=== PATIENT | male | born 1945 | race Caucasian/White ===

== ENCOUNTER 2018-10-12 11:33 | Outpatient (CLI) | payer MEDICARE, BC ==
[~2018-10-12] VITALS: Ht 177.8 cm; Wt 75.9 kg
--- NOTE | ~2018-10-12 | HEMODYNAMI ---
PATIENT:MARNI WATERS MEDICAL RECORD: [id number] : 47 LOCATION:DRkCAT ADMISSION DATE: 10/12/18 Generatedon:10/12/201814:06 Patient name: MARNI WATERS Patient #: [id number] SSN: : 1945 Date of study: 10/12/2018 Page: Of Hemodynamic Procedure Report Patient Data Patient Demographics Procedure consent was obtained First Name: MARNI Gender: Male Last Name: JT : 1945 Middle Initial: L Age: 73 year(s) Patient #: [id number] Race: Unknown Additional ID: [id number] Contact details [address]: [address] [place] [address] State: [place] City: [place] Zip code: [address] Past Medical History Allergies Allergen Reaction Date Comments Reported Other allergy 10/12/2018 Sulfa Admission Admission Data Admission Date: 10/12/2018 Admission Time: 11:33 Procedure Procedure Types Cath Procedure Diagnostic Procedure LHC LHC w/Coronaries Sedation Charges Moderate Sedation up to 15 minutes Peripheral Cath Diagnostic Procedure Abd/Extremity Aortagram Procedure Description Procedure Date Procedure Date: 10/12/2018 Procedure Start Time: 13:18 Procedure End Time: 14:04 Procedure Staff Name Function Janusz Koroma MD Performing Physician Lela Ma RT Monitor Rayo Sesay RT Monitor Karey Srivastava RT Scrub Martin John RN Nurse Procedure Data Cath Procedure Fluoroscopy Diagnostic fluoroscopy Total fluoroscopy Time: time: 15.3 min 15.3 min Diagnostic fluoroscopy Total fluoroscopy dose: 975 dose: 975 mGy mGy Contrast Material Contrast Material Type Amount (ml) Isovue 300 221 Entry Location Entry Primary Successful Side Size Upsize Upsize Entry Closure Coreas ccessful Closure Location (Fr) 1 (Fr) 2 (Fr) Remarks Device Remarks Radial Right 6 Fr Mechanical artery Short Compression Estimated blood loss: 5 ml Diagnostic catheters Device Type Used For End Catheter Placement DIAGNOSTIC 5FR Infinity Multi-vessel RBL-TG ([id number]) Angiography DIAGNOSTIC Pigtail 5Fr Multi-vessel catheter ([id number]) Angiography DIAGNOSTIC Aqua Multi-vessel Berenstein 125cm 5Fr Angiography catheter ([id number]) DIAGNOSTIC JB3 5Fr Multi-vessel Catheter ([id number]) Angiography DIAGNOSTIC JL 3.5 5Fr Multi-vessel catheter ([id number]) Angiography DIAGNOSTIC JL 5 5Fr Multi-vessel catheter ([id number]) Angiography Procedure Complications No complications Procedure Medications Medication Administration Route Dosage 0.9% NaCl I.V. 100 ml/hr Oxygen etCO2 Nasal cannula 2 l/min Heparin Flush Bag added to field 2 bags (1000units/500ml NS) Lidocaine 2% added to field 20 Radial Cocktail added to field 1 syringe (Verapomil 2mg/Nitro 400mcg/Heparin 1500units) Versed I.V. 2 mg Fentanyl I.V. 100 mcg Versed I.V. 1 mg Radial Cocktail I.A. 1 syringe (Verapomil 2mg/Nitro 400mcg/Heparin 1500units) Versed I.V. 1 mg Hemodynamics Rest Heart Rate: 75 (bpm) Pressure Samples Time Site Value (mmHg) Purpose Heart Use Rate(bpm) 13:23 LV 103/4,5 Snapshot 114 Snapshots Pre Cath Intra NCS Post Cath Vital Signs Time Heart Resp SPO2 etCO2 NIBP (mmHg) Rhythm Pain Sedation Rate (ipm) (%) (mmHg) Status Level (bpm) 12:56:45 72 14 100 30.6 119/84(112) NSR 0 (11) 10(A) , No pain 13:00:48 72 12 95 0 140/79(123) NSR 0 (11) 10(A) , No pain 13:04:58 69 12 99 29.1 143/82(110) NSR 0 (11) 10(A) , No pain 13:09:10 74 19 92 0 140/81(120) NSR 0 (11) 10(A) , No pain 13:13:20 75 19 92 0 143/80(117) NSR 0 (11) 10(A) , No pain 13:17:30 74 14 93 0 127/81(115) NSR 0 (11) 10(A) , No pain 13:22:04 95 11 95 29 109/71(90) NSR 0 (11) 10(A) , No pain 13:27:03 97 12 96 0 110/73(92) NSR 0 (11) 10(A) , No pain 13:31:07 83 11 95 0 125/70(90) NSR 0 (11) 10(A) , No pain 13:35:13 82 11 95 0 128/76(99) NSR 0 (11) 10(A) , No pain 13:39:23 82 12 93 0 119/70(101) NSR 0 (11) 10(A) , No pain 13:43:28 81 12 93 0 125/72(96) NSR 0 (11) 10(A) , No pain 13:47:36 80 14 95 0 121/73(92) NSR 0 (11) 10(A) , No pain 13:51:42 83 13 92 0 120/76(101) NSR 0 (11) 10(A) , No pain 13:55:48 86 13 94 0 128/72(97) NSR 0 (11) 10(A) , No pain 14:00:00 83 16 92 0 113/65(81) NSR 0 (11) 10(A) , No pain 14:04:03 80 15 94 0 117/68(90) NSR 0 (11) 10(A) , No pain Medications Time Medication Route Dose Verified Delivered Reason Notes Effectiveness by by 12:55:58 0.9% NaCl I.V. 100 Martin Martin Per ml/hr Alvaro John physician RN RN 12:56:07 Oxygen etCO2 2 l/min Martin Martin Per Nasal Alvaro John physician cannula RN RN 12:56:18 Heparin Flush added 2 bags Martin Martin used for Bag to Lorigan Lorigan procedure (1000units/500ml [facility] RN RN NS) 12:56:29 Lidocaine 2% added 20ml Martin Martin for local to vial Lorigan Lorigan anesthetic field RN RN 12:56:42 Radial Cocktail added 1 Martin Martin used for (Verapomil to syringe Lorigan Lorigan procedure 2mg/Nitro RN RN 400mcg/Heparin 1500units) 13:10:42 Versed I.V. 2 mg Martin Martin for sedation Alvaro John RN RN 13:10:51 Fentanyl I.V. 100 mcg Martin Martin for sedation Alvaro John RN RN 13:19:34 Versed I.V. 1 mg Martin Martin for sedation Alvaro John RN, RN 13:20:10 Radial Cocktail I.A. 1 Martin Boudreaux for (Verapomil syringe Lorigan Ga vasodilation 2mg/Nitro SG HOLDEN 400mcg/Heparin 1500units) 13:52:20 Versed I.V. 1 mg Martin Martin for sedation Alvaro John RN, RN Procedure Log Time Note 12:39:44 Martin John RN sent for patient. Start room use. 12:39:45 Time tracking: Regular hours (M-F 7:00 - 5:00) 12:39:50 Plan of Care:Hemodynamics will remain stable., Cardiac rhythm will remain stable., Comfort level will be maintained., Respiratory function will remain adequate., Patient/ family verbilizes understanding of procedure., Procedure tolerated without complication., Recovers from procedure without complications.. 12:45:38 Patient received from Pre/Post Procedure Room to [facility] 2 Alert and oriented. Tansferred to table in Supine position. 12:45:40 Warm blankets applied, and eveline hugger turned on for patient comfort. 12:45:40 Correct patient and procedure confirmed by team. 12:45:41 Signed procedure consent form obtained from patient. 12:45:43 ECG and BP/O2 sat monitors applied to patient. 12:55:42 Vital chart was started 12:55:47 Baseline sample Acquired. 12:55:51 Rhythm: sinus rhythm 12:55:53 Full Disclosure recording started 12:55:58 0.9% NaCl 100 ml/hr I.V. was administered by Martin John RN; Per physician; 12:56:07 Oxygen 2 l/min etCO2 Nasal cannula was administered by Martin John RN; Per physician; 12:56:18 Heparin Flush Bag (1000units/500ml NS) 2 bags added to field was administered by Martin John RN; used for procedure; 12:56:18 H&P Date Dictated: 09/19/2018 Within 30 days and on chart., H&P Addendum completed by physician on day of procedure. (MUST COMPLETE FOR ALL OUTPATIENTS). 12:56:19 Pre-procedure instructions explained to patient. 12:56:21 Family in waiting room. 12:56:23 Patient NPO since Midnight. 12:56:29 Lidocaine 2% 20ml vial added to field was administered by Martin John RN; for local anesthetic; 12:56:35 Patient allergic to Other allergySulfa 12:56:38 Is the patient allergic to Iodine/contrast media? No. 12:56:39 Was the patient premedicated? Yes 12:56:42 Radial Cocktail (Verapomil 2mg/Nitro 400mcg/Heparin 1500units) 1 syringe added to field was administered by Martin John RN; used for procedure; 12:56:47 Is patient on blood thinner?Yes 12:56:50 ACC The patient was administered the following blood thiners within the last 24 hours: ACCPlavix 12:56:52 Patient diabetic? No. 12:56:58 Snore? Yes 12:57:00 Sleep apnea? No 12:57:07 Dentures? No ? 12:57:15 Patient pain scale 0/10 ?. 12:57:57 Right Radial & Right Groin area was prepped with chlora-prep and draped in sterile fashion 12:57:58 Alarms reviewed by R. N. 12:57:59 Sharps counted by scrub and verified by R.N. 13:06:57 Physician arrived 13:06:57 --------ALL STOP TIME OUT------ 13:06:58 Final Timeout: patient, procedure, and site verified with staff and physician. All members of the team are in agreement. 13:06:59 Right Radial & Right Groin site verified by team. 13:07:04 Fire Safety Assessment: A--An alcohol-based skin anteseptic being used preoperatively., C--Open oxygen or nitrous oxide is being used., D--An ESU, laser, or fiber-optic light is being used. 13:07:07 Physical assessment completed. ASA score P 2 - A patient with mild systemic disease as per Janusz Koroma MD. 13:07:10 Sedation plan: IV Moderate Sedation Medication:Versed, Fentanyl 13:10:42 Versed 2 mg I.V. was administered by Martin John RN; for sedation; 13:10:51 Fentanyl 100 mcg I.V. was administered by Martin John RN; for sedation; 13:18:16 Procedure started. 13:18:20 Use device set Radial Dx or PCI 13:18:22 ACIST Syringe (10335) opened to sterile field. 13:18:22 Medline Cath Pack ([id number]) opened to sterile field. 13:18:23 Bag Decanter (2001S) opened to sterile field. 13:18:27 ACIST Hand Control (93813) opened to sterile field. 13:18:28 ACIST Manifold (06675) opened to sterile field. 13:18:28 Tegaderm 4 x 4 (1626W) opened to sterile field. 13:18:29 MBrace Wrist Support ([id number]) opened to sterile field. 13:18:31 SHEATH 6FR Slender (11-1060) opened to sterile field. 13:18:40 EMERALD Guide Wire (280-851) opened to sterile field. 13:18:49 Local anesthetic to right radial artery with Lidocaine 2% by Janusz Koroma MD.INITIAL ACCESS ONLY 13:19:34 Versed 1 mg I.V. was administered by Martin John RN; for sedation; 13:19:39 A 6 Fr Short sheath was inserted into the Right Radial artery 13:20:10 Radial Cocktail (Verapomil 2mg/Nitro 400mcg/Heparin 1500units) 1 syringe I.A. was administered by Janusz Koroma MD; for vasodilation; 13:22:07 A DIAGNOSTIC 5FR Infinity RBL-TG ([id number]) was advanced over the wire and used for Multi-vessel Angiography. 13:23:20 LV hemodynamics recorded. 13:23:21 LV gram done using CUEVAS 13:23:23 Injector settings: Ml/sec: 5, Volume: 15, 13:24:28 EF : 50 % 13:25:28 LCA angiography performed. 13:25:32 Injector settings: Ml/sec: 3, Volume: 6, 13:26:54 RCA angiography performed. 13:26:57 Injector settings: Ml/sec: 3, Volume: 6, 13:28:16 Catheter removed. 13:29:31 A DIAGNOSTIC Pigtail 5Fr catheter (074760G) was advanced over the wire and used for Multi-vessel Angiography. 13:31:27 Catheter removed. unable to cannulate vessel. 13:31:39 A DIAGNOSTIC Samba TVa Berenstein 125cm 5Fr catheter (RON1331) was advanced over the wire and used for Multi-vessel Angiography. 13:34:04 GLIDE WIRE ANGLE 260cm (FV1027) opened to sterile field. 13:34:39 glide wire advanced. 13:36:32 Abdominal Aortagram was performed. 13:38:13 Catheter removed. 13:41:59 GUIDE 5FR JR 4.0 catheter ([id number]) opened to sterile field. 13:42:09 5 Fr jr 4 guide catheter was inserted over the wire 13:44:00 Catheter removed. unable to cannulate vessel. 13:45:38 A DIAGNOSTIC JB3 5Fr Catheter (048530C0) was advanced over the wire and used for Multi-vessel Angiography. 13:47:58 Catheter removed. 13:48:44 A DIAGNOSTIC JL 3.5 5Fr catheter (544191Q) was advanced over the wire and used for Multi-vessel Angiography. 13:50:56 Catheter removed. 13:51:10 A DIAGNOSTIC JL 5 5Fr catheter (724192P) was advanced over the wire and used for Multi-vessel Angiography. 13:52:20 Versed 1 mg I.V. was administered by Martin John RN; for sedation; 13:56:27 Bilateral carotid angiography performed. 13:56:29 Bilateral subclavian angiography performed 13:57:35 Catheter removed. 13:57:55 5 Fr jr 4 guide catheter was inserted over the wire 13:58:31 Right carotid angiography performed. 13:58:43 Right subclavian angiography performed 13:59:06 Catheter removed. 14:00:12 Sheath removed intact; hemostasis achieved with Mechanical Compression to the Right Radial artery. 14:00:21 Procedure ended.(Physican Out) 14:00:38 Fluoroscopy time 15.30 minutes. 14:00:41 Flurop Dose total: 975 14:00:41 Fluoroscopy dose: 975 mGy 14:02:01 Contrast amount:Isovue 300 221ml. 14:02:02 Sharps counted by scrub and verified by R.N. 14:02:08 TR band inflated with 10cc of air. 14:02:09 Insertion/operative site no bleeding no hematoma. 14:02:17 Post right radial artery:stable 14:02:19 Post Procedure Pulses reassessed and unchanged 14:02:21 Post procedure rhythm: unchanged. 14:02:23 Estimated blood loss: 5 ml 14:02:26 Post procedure instruction explained to patient.Patient verbalizes understanding. 14:02:27 Patient needs reinforcement of post procedure teaching. 14:03:31 Procedure type changed to Cath procedure, Diagnostic procedure, LHC, LHC w/Coronaries, Sedation Charges, Moderate Sedation up to 15 minutes, Peripheral Cath Diagnostic Procedure, Abd/Extremity, Aortagram 14:03:32 Procedure and supply charges have been captured, reviewed, submitted and are correct. 14:03:36 Procedure Complication : No complications 14:03:38 Vital chart was stopped 14:03:49 ZEPHYR REGULAR TR BAND NO COST(872054) opened to sterile field. 14:03:52 See physician's report for complete and final results. 14:03:59 Report given to Pre/Post Procedure Room. 14:04:02 Patient transfered to Pre/Post Procedure Room with Stretcher. 14:04:05 Procedure ended. 14:04:05 Full Disclosure recording stopped 14:04:11 End room use (Document Last) Device Usage Item Name Manufacture Quantity Catalog Hospital Part Current Minima l Lot# / Number Charge Number Stock Stock Serial# Code ACIST Acist 1 55864 007791 960249 [id number] 20 Syringe Medical (65685) Systems Inc Medline Cath Medline 1 [id number] 178600 95642 911923 5 Pack ([id number]) Bag Decanter Microtek 1 2001S 001315 05862 720044 5 (2001S) Medical Inc. ACIST Hand Acist 1 31978 703027 540997 842799 5 Control Medical (12205) Systems Inc ACIST Acist 1 79383 065735 574425 079161 5 Manifold Medical (07013) Systems Inc Tegaderm 4 x 3M 1 1626W 146674 030587 644133 5 4 (1626W) MBrace Wrist Advanced 1 140-0250-00 564165 49412 825457 5 Support Vascular (247070976) Dynamics SHEATH 6FR Terumo 1 [id number] 642107 150532 869950 5 Slender (80-1060) EMERALD Cardinal 1 502-455 209501 637419 5 Guide Wire Health (502-455) DIAGNOSTIC Cardinal 1 703544W0 530085 291964 5 5FR Syllabuster Health RBL-TG (089851K2) DIAGNOSTIC Cardinal 1 [id number] 501436 810160 922802 5 Pigtail 5Fr Health catheter (740264O) DIAGNOSTIC Cardinal 1 [id number] 794632 399394 393261 5 Aqua Health Berenstein 125cm 5Fr catheter (KSA9218) GLIDE WIRE Terumo 1 HZ3399 109719 438082 912685 5 ANGLE 260cm (KQ5057) GUIDE 5FR JR Medtronic 1 [id number] 120235 170548 669423 1 4.0 catheter (XR3YY42) DIAGNOSTIC Cardinal 1 638527Q7 869484 588839 386255 5 JB3 5Fr Health Catheter (420501R9) DIAGNOSTIC Cardinal 1 708189E 390642 305734 940615 5 JL 3.5 5Fr Health catheter (537193K) DIAGNOSTIC Cardinal 1 196585Z 972406 316087 181631 5 JL 5 5Fr Health catheter (931222O) ZEPHYR Cardinal 1 994052 033124 851042 5 REGULAR TR Health BAND NO COST(632406) Signature Audit [place] Stage Time Signature Unsigned Intra-Procedure 10/12/2018 Lela Ma 2:06:20 PM RT(R) Signatures Monitor : Lela Ma RT Signature : Date : Time : Monitor : Rayo Sesay Signature : RT Date : Time : [facility] [address] [place] [address]
[2018-10-12] MEDS ORDERED: ZOCOR10 MG PO (12:22)
[2018-10-12] MEDS ORDERED: PLAVIX75 MG PO (12:22)
[2018-10-12] MEDS ORDERED: LEVOXYL125 MCG PO (12:22)
[2018-10-12] MEDS ORDERED: LISINOPRIL5 MG PO (12:23)
[2018-10-12] MEDS ORDERED: BUPROPION HCL150 M1 PO (12:23)
[2018-10-12] MEDS ORDERED: NOVOLIN 70/30 110 ML SC (12:24)
[2018-10-12 12:37] VITALS: BP 133/68; Ht 177.8 cm; Wt 75.9 kg
[2018-10-12 12:41] LABS: BASOPHILS 0.3 % (0-2); HEMOGLOBIN 14.8 g/dL (13.5-17.5); IMMATURE GRANULOCYTES 0.2 % (0-5); MCH 29.7 pg (26.0-34.0); MCHC 34.4 g/dL (31.0-37.0); MCV 86.2 fL (80.0-100.0); MONOCYTES 10.2 % (2-11); NEUTROPHILS 62.3 % (40-80); PLATELET COUNT 164 10x3/uL (130-400); RBC 4.99 10x6/uL (4.20-6.10); WBC 6.2 10x3/uL (4.8-10.8)
[2018-10-12 12:48] LABS: ANION GAP 11.7 mmol/L (8-16); CALCIUM 8.4 mg/dL (8.5-10.1); CARBON DIOXIDE 28.4 mmol/L (21.0-32.0); CREATININE - SERUM 1.2 mg/dL (0.6-1.3); POTASSIUM - SERUM 4.1 mmol/L (3.5-5.1)
--- NOTE | 2018-10-12 14:30 | NUR ---
PATIENT AWAKE, EATING TURKEY SANDWICH. VSS ON ROOM AIR. RIGHT ZEPHYR BAND IN PLACE, NO S/S OF BLEEDING OR HEMATOMA.
--- NOTE | 2018-10-12 15:00 | NUR ---
PATIENT RESTING, VSS ON ROOM AIR. RIGHT ZEPHYR BAND IN PLACE, NO S/S OF BLEEDING OR HEMATOMA. NO C/O PAIN, NUMBNESS, OR TINGLING.
--- NOTE | 2018-10-12 15:15 | NUR ---
BEGIN AIR REMOVAL PROTOCOL FOR ZEPHYR BAND, NO S/S OF BLEEDING OR HEMATOMA NOTED.
--- NOTE | 2018-10-12 15:45 | NUR ---
REMAINING AIR REMOVED FROM TR BAND, NO S/S OF BLEEDING OR HEMATOMA NOTED. IV REMOVED. EDUCATION GIVEN TO PATIENT AND FRIEND REGARDING DISCHARGE INSTRUCTIONS, ALL QUESTIONS ANSWERED. VSS ON ROOM AIR.
--- NOTE | 2018-10-12 16:10 | NUR ---
RIGHT DRESSING IS CDI, NO S/S OF BLEEDING OR HEMATOMA NOTED. PATIENT TRANSFERRED VIA WHEELCHAIR TO CAR WITH FRIEND DRIVING, ALL BELONGINGS WITH PATIENT.
--- NOTE | 2018-10-14 12:22 | OP ---
PATIENT NAME: MARNI WATERS MEDICAL RECORD: [id number] :47 LOCATION:D.CAT ADMISSION DATE: SURGEON: MIKAL DAVIS MD DATE OF OPERATION: 10/12/2018 PROCEDURES: Left heart catheterization and selective coronary angiography plus an abdominal aortogram plus 4-vessel arteriography, right radial approach. CATHETERS: Include radial sheath, [place] catheter, pigtail catheter, JR4, JL3.5, and JL5 curve. The procedure was well tolerated. The patient was returned to the sheehan. Sheath was removed. TR band was placed. FINDINGS: AORTOGRAM: This shows no evidence of aortic dissection. There is total occlusion above the bifurcation of the iliacs. Marked dilation of inferior and superior mesenteric arteries, consistent with collaterals to the lower extremity. FOUR-VESSEL ARTERIOGRAPHY: RIGHT: The right common carotid was selectively engaged. Right common carotid shows smooth-walled vessel, free of disease. Right internal carotid is smooth-walled vessel, free of disease. Right external carotid is smooth-walled vessel, free of disease. LEFT: The left common carotid was selectively engaged. This shows smooth-walled vessel, free of disease. Left internal carotid does show about 50% stenosis in its mid portion, appears to be more than 50%. Left external carotid is smooth-walled vessel, free of disease. LEFT VENTRICULOGRAPHY: Normal wall motion. Normal systolic function. CORONARY ANATOMY: LEFT MAIN: Left main is free of disease. LAD: It has diffuse stenosis in its mid portion with about 80% good target distally. CIRCUMFLEX: Circumflex has a proximal stenosis of 90%. There is a 90% stenosed OM distally as well. RIGHT CORONARY ARTERY: It has 2 sequential stenoses of 80%. IMPRESSION: 1. Multivessel coronary artery disease. Preserved LV systolic function. 2. Early atherosclerotic plaquing of the left internal carotid. 3. 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 TRANSINT:[id number] Voice Confirmation ID: [id number] DOCUMENT ID: [id number] OPERATIVE REPORT [id number] MARNI WATERS MIKAL DAVIS MD at 1222 CC: [id number] DICTATION DATE: 10/12/18 1416 SYSTEMS MANAGER: 10/12/18 1813 DEP CLI 10/12/18 [facility] [address] [place] [address]
== END 2018-10-12 16:10 ==
LOC: D.CATH 11:33
PROVIDERS: Internal Medicine Interventional Cardiology
DX: I25.10 Atherosclerotic heart disease of native coronary artery without angina pectoris (principal); I65.22 Occlusion and stenosis of left carotid artery

== ENCOUNTER → 2018-10-14 09:32 | Outpatient (CLI) | payer MEDICARE, BC ==
[2018-10-12 12:37] VITALS: BMI 24.0
[~2018-10-14 09:32] MED LIST: ASPIRIN EC81 M1 PO; BUPROPION HCL150 M1 PO; COLACE100 MG PO; K-DUR20 MEQ PO; LEVOXYL125 MCG PO; LISINOPRIL5 MG PO; NOVOLIN 70/30 110 ML SC; PERCOCET 5-3251 TAB PO; PLAVIX75 MG PO; XOPENEX HFA15 GM INH; ZOCOR10 MG PO
[2018-10-14 10:18] LABS: PLT FUNCT.(P2Y12) PLAVIX 185 PRU (194-418)
== END | disposition home or self-care (01) ==
LOC: D.LAB 08:00 → D.US 08:30 → D.LAB 09:32
PROVIDERS: Internal Medicine Cardiovascular Disease
DX: I65.23 Occlusion and stenosis of bilateral carotid arteries (principal)

== ENCOUNTER 2018-10-18 10:48 | Inpatient (IN) | payer MEDICARE, BC ==
[~2018-10-18] VITALS: Ht 177.8 cm; Wt 77.6 kg
[~2018-10-18 10:48] MED LIST changes: -ASPIRIN EC81 M1 PO; -COLACE100 MG PO; -K-DUR20 MEQ PO; -PERCOCET 5-3251 TAB PO; -XOPENEX HFA15 GM INH
[2018-10-18 11:59] LABS: BASOPHILS 0.4 % (0-2); EOSINOPHILS 3.6 % (0-7); HEMATOCRIT 43.2 % (42.0-54.0); HEMOGLOBIN 15.1 g/dL (13.5-17.5); IMMATURE GRANULOCYTES 0.1 % (0-5); LYMPHOCYTES 19.4 % (15-50); MCH 29.9 pg (26.0-34.0); MCV 85.5 fL (80.0-100.0); MEAN PLATELET VOLUME 9.9 fL (7.4-10.4); MONOCYTES 10.5 % (2-11); PLATELET COUNT 179 10x3/uL (130-400); RBC 5.05 10x6/uL (4.20-6.10); RDW 11.9 % (11.5-14.5); WBC 7.2 10x3/uL (4.8-10.8)
[2018-10-18] MEDS ORDERED: XOPENEX HFA15 GM INH (11:59)
[2018-10-18 12:23] LABS: APPEARANCE CLEAR (CLEAR); BILIRUBIN NEGATIVE (NEGATIVE); COLOR YELLOW (YELLOW); GLUCOSE 1000 mg/dL (NEGATIVE); KETONE NEGATIVE (NEGATIVE); NITRITE NEGATIVE (NEGATIVE); PROTEIN NEGATIVE (NEGATIVE); SPECIFIC GRAVITY 1.015 (1.005-1.020); UROBILINOGEN NORMAL (NORMAL)
[2018-10-18 12:24] LABS: APTT 26.3 SECONDS (22.8-39.4); INR 1.06 (0.85-1.17); PROTIME 13.3 SECONDS (11.6-15.0)
[2018-10-18 12:29] LABS: ALBUMIN 3.8 g/dL (3.4-5.0); ANION GAP 16.9 mmol/L (8-16); BILIRUBIN - TOTAL 0.33 mg/dL (0.2-1.3); CALCIUM 8.4 mg/dL (8.5-10.1); CREATININE - SERUM 1.2 mg/dL (0.6-1.3); PHOSPHOROUS 3.1 mg/dL (2.5-4.9); POTASSIUM - SERUM 3.9 mmol/L (3.5-5.1); PROTEIN - SERUM 7.1 g/dL (6.4-8.2); T4 THYROXIN - FREE 1.03 ng/dL (0.76-1.46); THYROID STIMULATING HORMONE 1.34 uIU/mL (0.36-3.74); URIC ACID 3.8 mg/dL (2.6-7.2)
[2018-10-20] VITALS (29 sets, daily range): BP systolic 111–150; BP diastolic 48–85; BMI 25.1; BMI 25.0
[2018-10-21] VITALS (23 sets, daily range): BP systolic 102–140; BP diastolic 49–74; Ht 177.8 cm; Wt 77.6 kg
[2018-10-21 06:44] LABS: HEMATOCRIT 37.3 % (42.0-54.0); HEMOGLOBIN 12.4 g/dL (13.5-17.5); MCH 29.4 pg (26.0-34.0); MCHC 33.2 g/dL (31.0-37.0); MCV 88.4 fL (80.0-100.0); RBC 4.22 10x6/uL (4.20-6.10); RDW 12.6 % (11.5-14.5); WBC 16.1 10x3/uL (4.8-10.8)
[2018-10-21 06:52] LABS: ALBUMIN 2.9 g/dL (3.4-5.0); ANION GAP 11.9 mmol/L (8-16); BILIRUBIN - TOTAL 0.53 mg/dL (0.2-1.3); CALCIUM 7.1 mg/dL (8.5-10.1); CARBON DIOXIDE 27.3 mmol/L (21.0-32.0); CREATININE - SERUM 1.2 mg/dL (0.6-1.3); POTASSIUM - SERUM 4.2 mmol/L (3.5-5.1); PROTEIN - SERUM 5.3 g/dL (6.4-8.2)
--- NOTE | 2018-10-21 12:29 | OP ---
PATIENT NAME: MARNI WATERS MEDICAL RECORD: [id number] :47 LOCATION:D.CVI D.CV02 ADMISSION DATE:10/20/18 SURGEON: RAMESH CURTIS MD DATE OF OPERATION: 10/20/2018 SURGEON: Ramesh Curtis MD MEASURING CLERK: Clarke Mae OPERATIONS PERFORMED: 1. Coronary artery bypass graft times 5 (left internal mammary to LAD, reverse saphenous vein graft from aorta to obtuse marginal proximal branch and then sequenced on to distal branch, from the side of that vein to the first diagonal distally, and from the aorta to the distal right coronary artery). One arterial and four venous distal bypasses. 2. Endoscopic saphenous vein harvest, right thigh. PREOPERATIVE DIAGNOSES: Coronary artery disease, occluded abdominal aortic aneurysm, and aortoiliac occlusive disease. POSTOPERATIVE DIAGNOSES: Coronary artery disease, occluded abdominal aortic aneurysm, and aortoiliac occlusive disease. ANESTHESIA: General endotracheal anesthesia. ESTIMATED BLOOD LOSS: Total cardiopulmonary bypass with Cell Saver retransfusion. COMPLICATIONS: None. SPECIMEN: None. CONDITION: Stable. DISPOSITION: CV ICU. OPERATIVE FINDINGS: 1. Transesophageal echocardiography revealed good contractility. No valvular stenosis or regurgitation before and after cardiopulmonary bypass. 2. Good quality greater saphenous vein from the right thigh, harvested endoscopically, slightly larger in the upper thigh and this portion was used for the right coronary artery graft. 3. 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 4. Good quality left internal mammary artery. The LAD and all distal vessels had severe disease. The LAD was a 2.0-mm vessel. 5. First diagonal vessel was a 1.5-mm severely diseased vessel. The proximal end of this vein graft was brought off end-to-side off of the obtuse marginal graft. 6. The bifurcating obtuse marginal had severe disease above and below the bifurcation. Therefore, a sequential graft to both 2.0-mm branches was performed. 7. The right coronary artery was severely diseased down to the bifurcation and the proximal portion of the posterior descending artery, which was a smaller OPERATIVE REPORT [id number] MARNI WATERS vessel than the ongoing right coronary artery, which was the site of anastomosis. 8. Both lungs are severely hyperexpanded. 9. The patient had significant sinus arrhythmia and then apparently type 2 heart block, but from cardiopulmonary bypass without vasopressor and left the operating room on 2 mcg per kg per minute of dopamine. OPERATIVE INDICATION: The patient with severe bilateral peripheral vascular disease, short distance claudication, and occluded abdominal aortic aneurysm and common iliacs; found to have severe 3-vessel coronary artery disease. OPERATIVE PROCEDURE IN DETAIL: The patient was brought to the operating suite. General anesthesia was obtained. The patient was prepped and draped. Greater saphenous vein harvested endoscopically from the right thigh. Side branches were divided with electrocautery. The vessel ligated proximally and distally, and removed. Side branches were tied or clipped. Leg was irrigated and closed in 2 layers and later wrapped with an elastic wrap. Median sternotomy incision was made. Subcutaneous tissue was divided by electrocautery. Sternum was divided with a saw. Left hemisternum was elevated. Left pleural cavity was entered. Left internal mammary artery and vein were taken down as a pedicle graft. Sternal retractor was placed. Pericardium was opened. Heparin was given. Aorta was cannulated. Dual stage venous cannula was inserted. The patient was placed on cardiopulmonary bypass. Internal mammary was clipped distally and made ready for anastomosis. Sites for distal anastomosis were selected. Antegrade cardioplegia cannula was placed. The patient's temperature was allowed to drift. Cross-clamp was placed. Cardioplegia was given antegrade and this was repeated at 15- to 20-minute intervals including down the completed vein grafts. Distal anastomoses were performed in standard technique and proximal anastomosis in single cross-clamp technique. Aortic root de-aired by removing the cross-clamp, venting the root, tying the proximal anastomosis, de-airing the vein graft, and then restoring flow. Proximal and distal anastomotic sites were checked for bleeding. Single gemu-oy-sepe proximal anastomosis performed to the diagonal graft and then, with the patient in sinus rhythm, the patient was weaned from cardiopulmonary bypass and was stable. The patient was decannulated. Cannulation sites were oversewn. Protamine was given. Thorough irrigation was undertaken and grafts lay appropriately. Hemostasis was ensured. Drains were placed in both pleural cavities in the mediastinum. Ventricular pacing wires were placed. Pericardial fat was loosely reapproximated. The internal mammary harvest site was inspected for bleeding. Left chest was evacuated as much as possible due to adhesions. The sternum was closed with wires. The patient was stable. The chest was closed. Fascia was closed. Subcutaneous tissue was closed. Skin was closed. Dermabond was placed. Needle and sponge counts were reported as correct. The patient was taken to the ICU in stable condition. TRANSINT:[id number] Voice Confirmation ID: [id number] DOCUMENT ID: [id number] OPERATIVE REPORT [id number] MARNI WATERS DANIEL W MD at 1229 CC: MIKAL DAVIS MD [id number] DICTATION DATE: 10/20/18 1454 SECOND OPERATOR: 10/20/18 1628 ADM IN [facility] [address] [place] [id number]
[2018-10-22] VITALS (23 sets, daily range): BP systolic 95–129; BP diastolic 52–90
[2018-10-22 05:42] LABS: HEMATOCRIT 36.2 % (42.0-54.0); HEMOGLOBIN 11.9 g/dL (13.5-17.5); MCH 29.5 pg (26.0-34.0); MCHC 32.9 g/dL (31.0-37.0); MCV 89.6 fL (80.0-100.0); MEAN PLATELET VOLUME 10.7 fL (7.4-10.4); RBC 4.04 10x6/uL (4.20-6.10); RDW 12.6 % (11.5-14.5); WBC 16.9 10x3/uL (4.8-10.8)
[2018-10-22 07:03] LABS: ALBUMIN 2.8 g/dL (3.4-5.0); ANION GAP 16.3 mmol/L (8-16); BILIRUBIN - TOTAL 0.44 mg/dL (0.2-1.3); CALCIUM 7.5 mg/dL (8.5-10.1); CARBON DIOXIDE 23.4 mmol/L (21.0-32.0); CREATININE - SERUM 1.3 mg/dL (0.6-1.3); POTASSIUM - SERUM 4.7 mmol/L (3.5-5.1); PROTEIN - SERUM 5.4 g/dL (6.4-8.2)
[2018-10-23] VITALS (23 sets, daily range): BP systolic 101–146; BP diastolic 37–86
[2018-10-23 05:56] LABS: HEMOGLOBIN 10.9 g/dL (13.5-17.5); MCH 29.4 pg (26.0-34.0); MCV 88.9 fL (80.0-100.0); MEAN PLATELET VOLUME 10.3 fL (7.4-10.4); RBC 3.71 10x6/uL (4.20-6.10); RDW 12.5 % (11.5-14.5)
[2018-10-23 06:00] LABS: WBC 10.6 10x3/uL (4.8-10.8)
[2018-10-23 06:22] LABS: ALBUMIN 2.5 g/dL (3.4-5.0); BILIRUBIN - TOTAL 0.51 mg/dL (0.2-1.3); CALCIUM 7.5 mg/dL (8.5-10.1); CARBON DIOXIDE 25.3 mmol/L (21.0-32.0); CREATININE - SERUM 1.1 mg/dL (0.6-1.3); PROTEIN - SERUM 5.4 g/dL (6.4-8.2)
[2018-10-23 06:23] LABS: ANION GAP 14.6 mmol/L (8-16); POTASSIUM - SERUM 3.9 mmol/L (3.5-5.1)
[2018-10-24] VITALS (23 sets, daily range): BP systolic 98–145; BP diastolic 62–98
[2018-10-24 07:32] LABS: ALBUMIN 2.7 g/dL (3.4-5.0); ALKALINE PHOSPHATASE 49 U/L (46-116); ALT (SGPT) 26 U/L (10-68); BILIRUBIN - TOTAL 0.61 mg/dL (0.2-1.3); CALC OSMOLALITY 285 mosm/kg (275-300); CARBON DIOXIDE 27.1 mmol/L (21.0-32.0); CHLORIDE - SERUM 102 mmol/L (98-107); GLUCOSE 189 mg/dL (74-106); POTASSIUM - SERUM 3.9 mmol/L (3.5-5.1); SODIUM 139 mmol/L (136-145); UREA NITROGEN 21 mg/dL (7-18); eGFR NON AFRICAN AMERICAN 78 mL/min (90-120)
[2018-10-24 07:47] LABS: HEMATOCRIT 35.5 % (42.0-54.0); HEMOGLOBIN 11.8 g/dL (13.5-17.5); MCH 29.5 pg (26.0-34.0); MCHC 33.2 g/dL (31.0-37.0); MCV 88.8 fL (80.0-100.0); MEAN PLATELET VOLUME 10.4 fL (7.4-10.4); RDW 12.6 % (11.5-14.5)
--- NOTE | 2018-10-24 11:46 | TEE ---
PATIENT:MARNI WATERS MEDICAL RECORD: [id number] LOCATION:[place] [address] AGE OF PATIENT: 73 ADMISSION DATE: 10/20/18 SEX: M REFERRING PHYSICIAN: INTERPRETING PHYSICIAN: MAYELA CARABALLO MD TRANSESOPHAGEAL ECHOCARDIOGRAM Date: 10/20/18 SHAKEEL CHARGE Y INDICATIONS: CABG PREMEDICATIONS: PATIENT'S RESPONSE PROCEDURE DOPPLER MEASUREMENTS: LVIT LA PA RA LVOT RVOT Asc. Ao AV Gradient Peak AV Mean AV Area MV Gradient Peak MV Mean MV Area INTERPRETATION: Doppler: 2-D: COLOR FLOW DOPPLER NORMAL SALINE STUDY: MISCELLANOUS: DIAGNOSIS: PLAN: Dermatology Sales Representative:3 Dr. Mcgee Practice Administrator: Lamont BALL COMMENTS: DATE OF SERVICE: 10/20/2018 PROCEDURE: Transesophageal echo evaluation of valvular structures during bypass surgery. FINDINGS: 1. Left ventricular chamber size is within normal limits. Left ventricular systolic function is normal. Overall ejection fraction estimated at 60%. 2. Left atrium, right atrium, and right ventricle chamber sizes are within TRANSESOPHAGEAL ECHOCARDIOGRAM REPORT [id number] MARNI WATERS normal limits. 3. Valvular structures have normal structure and motion. 4. Doppler interrogation reveals no significant valvular insufficiency or stenosis. 5. Evidence of pericardial effusion or left ventricular thrombus. TRANSINT:[id number] Voice Confirmation ID: [id number] DOCUMENT ID: [id number] at 1146 CC: [id number] DICTATION DATE: 10/21/18 1121 KIDNEY PULLER: 10/22/18 0304 ADM IN [place] [id number] [place] [address]
[2018-10-25] VITALS (15 sets, daily range): BP systolic 111–155; BP diastolic 58–94
[2018-10-25 07:24] LABS: HEMATOCRIT 37.9 % (42.0-54.0); HEMOGLOBIN 12.4 g/dL (13.5-17.5); MCH 29.4 pg (26.0-34.0); MCHC 32.7 g/dL (31.0-37.0); MCV 89.8 fL (80.0-100.0); MEAN PLATELET VOLUME 10.1 fL (7.4-10.4); RBC 4.22 10x6/uL (4.20-6.10); RDW 12.6 % (11.5-14.5)
[2018-10-25 07:32] LABS: ALBUMIN 2.8 g/dL (3.4-5.0); ANION GAP 11.5 mmol/L (8-16); BILIRUBIN - TOTAL 0.58 mg/dL (0.2-1.3); CARBON DIOXIDE 29.2 mmol/L (21.0-32.0); CREATININE - SERUM 1.1 mg/dL (0.6-1.3); POTASSIUM - SERUM 3.7 mmol/L (3.5-5.1); PROTEIN - SERUM 6.3 g/dL (6.4-8.2)
[2018-10-25] MEDS ORDERED: PERCOCET 5-3251 TAB PO (14:12)
[2018-10-25] MEDS ORDERED: ASPIRIN EC81 M1 PO (14:14)
[2018-10-25] MEDS ORDERED: K-DUR20 MEQ PO (14:16)
[2018-10-25] MEDS ORDERED: COLACE100 MG PO (14:16)
--- NOTE | 2018-10-25 19:33 | MORECARE ---
CASE MANAGEMENT DISCHARGE SUMMARY PATIENT: MARNI WATERS UNIT: [id number] ADM DATE: 10/20/18 AGE: 73 : [birth year] SEX: M ROOM/BED: D.02 AUTHOR: TEJ,DOC PHYSICIAN: REFERRING PHYSICIAN: DUY CURTIS MD DATE OF SERVICE: 10/25/18 Discharge Plan Patient Name: MARNI WATERS Facility: [facility]:[place] : 1945 Planned Disposition: Home Anticipated Discharge Date: Discharge Date: 10/25/2018 Expected LOS: Initial Reviewer: [email or web address] Initial Review Date: 10/25/2018 Generated: 10/25/18 8:33 pm Comments DCP- Discharge Planning Updated by [email or web address]: Maria Alejandra Pop on 10/25/18 6:[address] Patient Name: MARNI WATERS Admission Status: Elective Accout number: [id number] Admission Date: 10-20-2018 : 1945 Admission Diagnosis:ATHSCL HEART DISEASE OF [place] CORONARY ARTERY W/O ANG Attending: DUY CURTIS Current LOS: 5 Anticipated DC Date: Planned Disposition: Home Primary Insurance: MEDICARE A & B Discharge Planning Comments: CM met with patient at bedside. Patient states he lives at home alone. Patient plans to stay with family a few weeks in [place]. Patient denies any medical equipment in the home. He also denies any services prior to admission. Patient denies any discharge needs at this time. CM will continue to follow and assist as needed with discharge planning / needs. Braided Rug Maker: Maria Alejandra Pop DCPIA - Discharge Planning Initial Assessment Updated by [email or web address]: Maria Alejandra Pop on 10/25/18 7:29 pm * Is the patient Alert and Oriented? Yes * How many steps to enter\exit or inside your home? * PCP NO PCP * Pharmacy [facility] IN [place] * Preadmission Environment Home Alone * ADLs Independent * Equipment None * List name and contact numbers for known caregivers / representatives who currently or will assist patient after discharge: MARNI WATERS II - SON- [phone] * Verbal permission to speak to the caregivers and representatives has been obtained from the patient. N/A * Community resources currently utilized None * Additional services required to return to the preadmission environment? No * Can the patient safely return to the preadmission environment? Yes * Has this patient been hospitalized within the prior 30 days at any hospital? No Coverage Notice Reviewer: [email or web address] Catherine Pop Notice Issued Date-Time: 10/25/2018 15:25 Notice Type: IM Discharge Notice Notice Delivered To: Patient Relationship to Patient: Self Band Sawyer Name: Delivery Method: HAND - Hand Delivered Kiki Days: Prior Verbal Notification: Recipient Understood Notice: Yes Recipient Signature: Yes Med Rec Note Co-signed by Attending: Coverage Notice Comment: Patient Name: MARNI WATERS Page [phone] at 1933 All edits/amendments must be made on the electronic document DICTATION DATE: 10/25/181932 PLANER MILL GRADER: SINAN 10/25/181932 RPT#: [id number] DC DATE:10/25/18 STATUS: DIS IN [facility] [address] [place] [address] END OF REPORT
--- NOTE | 2018-10-25 19:40 | MORECARE ---
CASE MANAGEMENT DISCHARGE SUMMARY PATIENT: MARNI WATERS UNIT: [id number] ADM DATE: 10/20/18 AGE: 73 : 46 SEX: M ROOM/BED: D[facility] AUTHOR: TEJ,DOC PHYSICIAN: REFERRING PHYSICIAN: DUY CURTIS MD DATE OF SERVICE: 10/25/18 Discharge Plan Patient Name: MARNI WATERS Facility: [facility]:[place] : 1945 Planned Disposition: Home Anticipated Discharge Date: Discharge Date: 10/25/2018 Expected LOS: Initial Reviewer: [email or web address] Initial Review Date: 10/25/2018 Generated: 10/25/18 8:40 pm Comments DCP- Discharge Planning Updated by [email or web address]: Maria Alejandra Pop on 10/25/18 6:[address] D/C IMM EXPLAINED AND SERVED 10/25/18 @ [facility]. PATIENT DENIES ANY D/C NEEDS DCP- Discharge Planning Updated by [email or web address]: Maria Alejandra Pop on 10/25/18 6:[address] Patient Name: MARNI WATERS Admission Status: Elective Accout number: [id number] Admission Date: 10-20-2018 : 1945 Admission Diagnosis:ATHSCL HEART DISEASE OF [place] CORONARY ARTERY W/O ANG Attending: DUY CURTIS Current LOS: 5 Anticipated DC Date: Planned Disposition: Home Primary Insurance: MEDICARE A & B Discharge Planning Comments: CM met with patient at bedside. Patient states he lives at home alone. Patient plans to stay with family a few weeks in [place]. Patient denies any medical equipment in the home. He also denies any services prior to admission. Patient denies any discharge needs at this time. CM will continue to follow and assist as needed with discharge planning / needs. Production Mechanic: Maria Alejandra Pop DCPIA - Discharge Planning Initial Assessment Updated by [email or web address]: Maria Alejandra Pop on 10/25/18 7:29 pm * Is the patient Alert and Oriented? Yes * How many steps to enter\exit or inside your home? * PCP NO PCP * Pharmacy [facility] [place] * Preadmission Environment Home Alone * ADLs Independent * Equipment None * List name and contact numbers for known caregivers / representatives who currently or will assist patient after discharge: MARNI WATERS II - SON- [phone] * Verbal permission to speak to the caregivers and representatives has been obtained from the patient. N/A * Community resources currently utilized None * Additional services required to return to the preadmission environment? No * Can the patient safely return to the preadmission environment? Yes * Has this patient been hospitalized within the prior 30 days at any hospital? No Coverage Notice Reviewer: [email or web address] Catherine Pop Notice Issued Date-Time: 10/25/2018 15:25 Notice Type: IM Discharge Notice Notice Delivered To: Patient Relationship to Patient: Self Supervisor Color Paste Mixing Name: Delivery Method: HAND - Hand Delivered Kiki Days: Prior Verbal Notification: Recipient Understood Notice: Yes Recipient Signature: Yes Med Rec Note Co-signed by Attending: Coverage Notice Comment: Last DP export: 10/25/18 6:33 p Patient Name: MARNI WATERS Page [phone] at 1940 All edits/amendments must be made on the electronic document DICTATION DATE: 10/25/181939 VETERINARY MANAGER: SINAN 10/25/181939 RPT#: [id number] DC DATE:10/25/18 STATUS: DIS IN [facility] [address] [place] [address] END OF REPORT
== END 2018-10-25 17:59 | disposition home or self-care (01) | DRG 236 ==
LOC: D.CVICU 10-20 05:00 → D.SDCHOLD 10-20 05:00 → D.CVICU 10-20 09:09
PROVIDERS: ADMIT Thoracic Surgery (Cardiothoracic Vascular Surgery)
PROC: 021309W Bypass Coronary Artery, Four or More Arteries from Aorta with Autologous Venous Tissue, Open Approach (ICD-10-PCS; 2018-10-20)
PROC: 06BP4ZZ Excision of Right Saphenous Vein, Percutaneous Endoscopic Approach (ICD-10-PCS; 2018-10-20)
PROC: 5A1221Z Performance of Cardiac Output, Continuous (ICD-10-PCS; 2018-10-20)
PROC: B24BZZ4 Ultrasonography of Heart with Aorta, Transesophageal (ICD-10-PCS; 2018-10-20)
PROC: 02100Z9 Bypass Coronary Artery, One Artery from Left Internal Mammary, Open Approach (ICD-10-PCS; principal; 2018-10-20 07:30)
DX: I25.10 Atherosclerotic heart disease of native coronary artery without angina pectoris (principal); I71.4 Abdominal aortic aneurysm, without rupture; R73.9 Hyperglycemia, unspecified; I44.0 Atrioventricular block, first degree; I48.91 Unspecified atrial fibrillation; I44.1 Atrioventricular block, second degree; J43.9 Emphysema, unspecified

== ENCOUNTER 2018-10-29 10:47 | Emergency (ER) | payer MEDICARE, BC ==
[~2018-10-29] VITALS: Ht 177.8 cm; Wt 80.0 kg
[~2018-10-29 10:47] MED LIST changes: +ASPIRIN EC81 M1 PO; +COLACE100 MG PO; +K-DUR20 MEQ PO; +PERCOCET 5-3251 TAB PO; +XOPENEX HFA15 GM INH
[2018-10-29 10:50] VITALS: Ht 177.8 cm; Wt 80.0 kg
[2018-10-29 12:23] LABS: BASOPHILS 0.3 % (0-2); EOSINOPHILS 4.1 % (0-7); HEMATOCRIT 40.5 % (42.0-54.0); HEMOGLOBIN 13.3 g/dL (13.5-17.5); IMMATURE GRANULOCYTES 1.3 % (0-5); LYMPHOCYTES 20.7 % (15-50); MCH 29.6 pg (26.0-34.0); MCHC 32.8 g/dL (31.0-37.0); MONOCYTES 11.6 % (2-11); RDW 12.7 % (11.5-14.5); WBC 9.5 10x3/uL (4.8-10.8)
[2018-10-29 12:26] LABS: ALBUMIN 3.3 g/dL (3.4-5.0); ALKALINE PHOSPHATASE 67 U/L (46-116); ALT (SGPT) 31 U/L (10-68); BILIRUBIN - TOTAL 0.26 mg/dL (0.2-1.3); CALC OSMOLALITY 289 mosm/kg (275-300); CALCIUM 8.3 mg/dL (8.5-10.1); CARBON DIOXIDE 28.6 mmol/L (21.0-32.0); CHLORIDE - SERUM 106 mmol/L (98-107); CREATININE - SERUM 1.2 mg/dL (0.6-1.3); GLUCOSE 148 mg/dL (74-106); POTASSIUM - SERUM 4.3 mmol/L (3.5-5.1); PROTEIN - SERUM 6.9 g/dL (6.4-8.2); SODIUM 143 mmol/L (136-145); UREA NITROGEN 17 mg/dL (7-18); eGFR NON AFRICAN AMERICAN 63 mL/min (90-120)
[2018-10-29 12:32] LABS: PLATELET COUNT 288 10x3/uL (130-400)
[2018-10-29 12:41] LABS: APTT 25.4 SECONDS (22.8-39.4); INR 1.08 (0.85-1.17); PROTIME 13.5 SECONDS (11.6-15.0)
[2018-10-29 12:42] LABS: CKMB 2.4 U/L (0.0-3.6); CREATINE KINASE 46 UL (21-232); D-DIMER-QUANTITATIVE 2.7 ug/mLFEU (0.20-0.54); PRO BNP 2655 pg/mL (0-125)
[2018-10-29 12:47] LABS: TROPONIN-I 0.637 ng/mL (0.000-0.060)
[2018-10-29 14:25] VITALS: BP 144/85
--- NOTE | 2018-11-01 11:18 | CN ---
PATIENT NAME:MARNI WATERS MEDICAL RECORD: [id number] : [birth year] LOCATION:ER ADMIT DATE: ACCOUNT: [id number] CONSULTING PHYSICIAN: MAYELA CARABALLO MD REFERRING PHYSICIAN: DALY STINSON MD DATE OF CONSULTATION: 10/29/2018 DIAGNOSES: 1. Edema. 2. Shortness of breath. 3. Coronary artery disease. 4. Status post coronary bypass graft surgery. 5. Hypertension. 6. Diabetes. HISTORY OF PRESENT ILLNESS: This is a gentleman who is status post coronary artery bypass graft surgery on 10/20/2018, who was just discharged from the hospital on . While in the hospital, he did have episodes of lower extremity edema; however, he was not put on a diuretic when he left. He is set to see Dr. Melvin on Wednesday. He had increasing fluid retention, shortness of breath and edema today for the first time. He has had no chest pain. No chest discomfort. His EKG is with no acute changes. His transesophageal echo perioperative was with an ejection fraction in the 60% range. PHYSICAL EXAMINATION: GENERAL APPEARANCE: Well-nourished, well-developed, appears stated age. Level of distress, comfortable. PSYCHIATRIC: Mental status, alert, normal affect. Orientation, oriented to time, place and person. EYES: Lids and conjunctiva, noninjected. No discharge, no pallor. ENT: Lips, teeth, gums, normal dentition. Oropharynx, no cyanosis, no pallor. NECK: Carotid arteries, bilateral normal upstroke, no bruits, no thrills. JUGULAR VEINS: No jugular venous pressure or distention. CERVICAL LYMPH NODES: Nontender, nonenlarged. THYROID: Not enlarged. Nontender. No nodules. LUNGS: Respiratory effort, unlabored. CHEST: Normal curvature. No thoracic deformity. No chest wall tenderness. Percussion, resonant. Auscultation, clear. No wheezes, no rales, no rhonchi. CARDIOVASCULAR: Precordial exam, nondisplaced. No heaves or pericardial thrills. Rate and rhythm, regular. Heart sounds, normal S1, normal S2. No S3, no gallop, no rub. Systolic murmur, not heard. Diastolic murmur, not heard. EXTREMITIES: No cyanosis, no edema. Peripheral pulses, full and equal in all extremities, except as noted. No bruits appreciated. ABDOMEN: Soft, nondistended. Normal aorta. No bruit. Nontender. No masses. Liver, nontender, no hepatomegaly. Spleen, nontender, no splenomegaly. MUSCULOSKELETAL: No joint tenderness. No joint swelling. No erythema. NEUROLOGICAL: Normal gait, normal strength, normal tone. SKIN: Warm and dry. OVERALL IMPRESSION: Edema, shortness of breath. His chest x-ray is not compatible with pulmonary edema. We will give him 1 dose of IV Lasix here and put him on daily Lasix. We will get an echocardiogram to reassess his ejection fraction before he leaves. Otherwise, follow up with Dr. Melvin on Wednesday as previously scheduled. CONSULT REPORT [id number] MARNI WATERS TRANSINT:[id number] Voice Confirmation ID: [id number] DOCUMENT ID: [id number] MAYELA CARABALLO MD at 1118 CC: [id number] DICTATION DATE: 10/29/18 1224 CHROMIUM PLATER: 10/29/18 1246 DEP ER 10/29/[address] [address]
--- NOTE | 2018-11-01 11:18 | EC ---
PATIENT:MARNI WATERS DATE OF SERVICE: 10/29/18 SEX: M MEDICAL RECORD: [id number] DATE OF : [birth year] LOCATION:D.ER AGE OF PATIENT: 73 ADMISSION DATE: 10/29/18 REFERRING PHYSICIAN: INTERPRETING PHYSICIAN: MAYELA AHUMADA MD ECHOCARDIOGRAM REPORT ECHO CHARGES 4 ECHO COMPLETE Date: 10/29/18 CLINICAL DIAGNOSIS: EDEMA, RECENT CABG LAST WEEK ECHOCARDIOGRAPHIC MEASUREMENTS (adult normal given) AC root (d.<3.7cm) 4.0 cm LV Septum d (<1.2 cm> 1.3 cm Valve Excursion 1.5 cm LV Septum (systole) 1.5 cm Left Atria (s.<4.0cm> 3.6 cm LVPW d(<1.2cm) 1.4 cm RV (d.<2.3cm) 3.4 cm LVPW (sytole) 1.5 cm LV diastole(<5.6CM) 4.2 cm MV E-F(>70mm/sec) cm LV systole 4.0 cm LVOT Diameter 1.7 cm MV exc.(>10mm) cm Est.ejection fraction (50-75%) % DOPPLER: LVIT cm/sec A 76.0 cm/sec E 47.0 cm/sec LA cm/sec RVSP 20 mmHg LVOT 75 cm/sec AOP1/2T m/s Asc. Ao 117 cm/sec RVOT 78 cm/sec RA cm/sec PA 93 cm/sec AV Gradient Peak 5.49 mmHg AV Mean 2.89 mmHg AV Area 1.7 cm MV Gradient Peak 4.89 mmHg MV Mean 1.99 mmHg MV Area cm COMMENTS: Fitness Coach: Lamont BALL Graphics Artist: 1 Dr. Ahumada TAPE# PACS Pericardial Effusion N DATE OF SERVICE: 10/29/2018 FINDINGS: 1. Left ventricular chamber size is within normal limits. Left ventricular systolic function is normal. Overall ejection fraction estimated at 55%. 2. Left atrium, right atrium, and right ventricle chamber sizes are within normal limits. 3. Valvular structures have normal structure and motion. 4. Doppler interrogation reveals mild mitral regurgitation, no other valvular insufficiency or stenosis and pulmonary systolic pressure is normal estimated at ECHOCARDIOGRAM REPORT [id number] MARNI WATERS 20 mmHg. 5. No evidence of pericardial effusion or left ventricular thrombus. TRANSINT:[id number] Voice Confirmation ID: [id number] DOCUMENT ID: [id number] MAYELA AHUMADA MD at 1118 CC: [id number] DICTATION DATE: 10/29/18 1538 BUSINESS BANKING RELATIONSHIP MANAGER: 10/29/18 2322 DEP ER 10/29/18 [place] [id number]
== END 2018-10-29 14:25 | disposition home or self-care (01) ==
LOC: D.ER 10:47
PROVIDERS: Family Medicine
DX: R06.02 Shortness of breath (principal); R60.0 Localized edema; R79.89 Other specified abnormal findings of blood chemistry; R74.8 Abnormal levels of other serum enzymes; Z86.73 Personal history of transient ischemic attack (TIA), and cerebral infarction without residual deficits; E11.9 Type 2 diabetes mellitus without complications; Z79.4 Long term (current) use of insulin; I10 Essential (primary) hypertension; I25.810 Atherosclerosis of coronary artery bypass graft(s) without angina pectoris; I73.9 Peripheral vascular disease, unspecified

== ENCOUNTER → 2018-11-25 10:09 | Outpatient (CLI) | payer MEDICARE, BC ==
[2018-10-29 10:50] VITALS: BMI 25.3
[2018-11-25 10:46] LABS: HEMATOCRIT 47.1 % (42.0-54.0); HEMOGLOBIN 15.3 g/dL (13.5-17.5); MCHC 32.5 g/dL (31.0-37.0); MCV 89.2 fL (80.0-100.0); MEAN PLATELET VOLUME 10.2 fL (7.4-10.4); RBC 5.28 10x6/uL (4.20-6.10); RDW 12.6 % (11.5-14.5); WBC 6.9 10x3/uL (4.8-10.8)
[2018-11-25 11:07] LABS: ALBUMIN 3.8 g/dL (3.4-5.0); ANION GAP 12.6 mmol/L (8-16); BILIRUBIN - TOTAL 0.4 mg/dL (0.2-1.3); CALCIUM 8.7 mg/dL (8.5-10.1); CARBON DIOXIDE 29.4 mmol/L (21.0-32.0); CREATININE - SERUM 1.1 mg/dL (0.6-1.3); PROTEIN - SERUM 7.4 g/dL (6.4-8.2)
== END | disposition home or self-care (01) ==
LOC: D.RAD 11-23 08:15 → D.LAB 11-23 08:15 → D.RAD 11-28 08:15
PROVIDERS: ATTEND Orthopaedic Surgery
DX: J90 Pleural effusion, not elsewhere classified (principal); D64.9 Anemia, unspecified

== ENCOUNTER → 2019-05-31 10:44 | Outpatient (CLI) | payer MEDICARE, BC ==
[2018-10-29 10:50] VITALS: BMI 25.3
== END | disposition home or self-care (01) ==
LOC: D.US 10:30
PROVIDERS: ATTEND Thoracic Surgery (Cardiothoracic Vascular Surgery)
DX: I73.9 Peripheral vascular disease, unspecified (principal)

== ENCOUNTER → 2019-11-09 12:58 | Outpatient (CLI) | payer MEDICARE, BC ==
[2018-10-29 10:50] VITALS: BMI 25.3
== END | disposition home or self-care (01) ==
LOC: D.US 12:58
PROVIDERS: ATTEND Thoracic Surgery (Cardiothoracic Vascular Surgery)
DX: I70.203 Unspecified atherosclerosis of native arteries of extremities, bilateral legs (principal)